=== PATIENT | female | born 1985 | race Caucasian/White ===

== ENCOUNTER 2016-06-27 17:12 | Observation (INO) | payer MEDICAID ==
--- NOTE | 2016-06-27 17:47 | CPEKG ---
Heart Rate: 65 RR Interval: 923 P-R Interval: 128 QRSD Interval: 86 QT Interval: 424 QTC Interval: 441 P [place]: 13 QRS [place]: 62 T Wave [place]: 35 EKG Severity - NORMAL ECG - EKG Impression: SINUS RHYTHM Electronically Signed By: Alexx Mccord 27-Jun-2016 22:35:45
[2016-06-27] MEDS ORDERED: LORazepam 2 MG/ML INJ ONE (18:09)
[2016-06-27] MEDS ORDERED: NS 1,000 ML IV ONE (18:11)
[2016-06-27] MEDS ORDERED: LORazepam 2 MG/ML INJ IVP ONE ×2 (18:17→19:24)
--- NOTE | 2016-06-27 18:17 | EDPHY ---
H & P Stated Complaint: SZ like activity Source: Other (Patient's boyfriend) Exam Limitations: Other - Personal History LMP (Females 10-55): Unknown Current Tetanus/Diphtheria Vaccine: Unsure Current Tetanus Diphtheria and Acellular Pertussis (TDAP): Unsure - Medical/Surgical History Hx Asthma: No Hx Chronic Respiratory Disease: No Hx Diabetes: No Hx Cardiac Disease: No Hx Renal Disease: No Hx Cirrhosis: No Hx Alcoholism: No Hx HIV/AIDS: No Hx Splenectomy or Spleen Trauma: No Other PMH: surgical- appy, back injury, ADD - Family History Significant Family History: No pertinent family hx - Social History Smoking Status: Current some day smoker Alcohol Use: Rarely Drug Use: None Time Seen by Provider: 06/27/16 18:14 HPI/ROS: HPI: 30-year-old female presents to emergency department with chief concern seizure-like activity. Per her boyfriend, she began having tremors on Tuesday after taking a Wellbutrin and Mucinex together at the same time. Over the past 48 hours the tremors have become more severe, she has developed a tick, and her gait has become uncoordinated. They deny recent fevers, chills, myalgias, visual changes, shortness of breath, chest pain, abdominal pain, nausea, vomiting, diarrhea, rash. No recent infections. No trauma. Denies alcohol or illicit drug use. Only took one dose of the Wellbutrin which had been a new prescription for her. Takes Meloxicam for back pain. ROS:10 point review of systems is negative other than as stated in HPI. 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 EENT: PERRLA. EOMI. No papilledema. no conjunctival injection or hemorrhage. TMs intact, translucent. No evidence of bleeding or otorrhea. Nasal septum midline, nasal mucosa pink. no evidence of drainage. Uvula midline, pharynx without redness. Resp: Breathing unlabored. Lungs clear to auscultation bilaterally. CV: HRR. S1S2. No MRG. GI: Abdomen soft, nontender. Bowel sounds normoactive and positive x4 quadrants. Skin: Warm, dry. No rashes noted. Capillary refill less than 2 seconds. Musculoskeletal: Moves all extremities. Neuro: Oriented to person, place, time. At time of exam, tremulous, partial seizure like activity. Strength 5+ in all extremities. Sensation intact all extremities. Extremities: Full range of motion. (Alexandra Baker) Constitutional: Initial Vital Signs Temperature (C) 36.7 C 06/27/16 17:12 Heart Rate 97 06/27/16 17:12 Respiratory Rate 18 06/27/16 17:12 Blood Pressure 130/82 H 06/27/16 17:12 O2 Sat (%) 97 06/27/16 17:12 O2 Delivery Mode Room Air Allergies/Adverse Reactions: No Known Allergies Allergy (Unverified 01/03/14 23:56) Home Medications: Medication Instructions Recorded Baclofen [Baclofen 10 mg (*)] 10 mg PO TID PRN 06/27/16 Meloxicam [Mobic 7.5 mg] 7.5 mg PO DAILY 06/27/16 Medical Decision Making - Diagnostics Imaging: CT Brain (Without Contrast) at 1833 hours History: Altered mental status, seizure. Comparison: None. Technique: Axial computed tomographic images of the brain without contrast. Dose reduction techniques were utilized. Findings: Ventricles, cisterns, and sulci are normal without atrophy, hydrocephalus, midline shift /herniation, or epidural/subdural hematomas. No acute intraparenchymal hemorrhage, definite infarct , or mass effect. Bone windows demonstrate no displaced fractures. Paranasal sinuses and mastoid air cells are clear. Impression: 1. Normal CT brain without contrast. 2. Consider MRI of the brain without and with contrast enhancement, if there is continued clinical concern. Final report concurs with initial preliminary interpretation. Dictated By: James Caballero (Alexandra Baker) ED Course/Re-evaluation: 1829:30-year-old female presents to emergency department with seizure-like activity that onset suddenly today. Developed tremors 2 days ago and symptoms have worsened progressively over the past 48 hours resulting in a tic and severe tremors vs partial seizure. CBC and basic metabolic panel are unremarkable. CT head negative. EKG shows a sinus rhythm, rate 65, normal intervals, no axis deviation, no dysrhythmia.1 mg IV Ativan significantly reduced the seizure-like activity. 1925: Given additional 1 mg IV Ativan for worsening seizure-like activity. Dr. Daniel of Neurology has been consulted. Gabapentin 300 mg TID started. First dose given in ED. Report given to Dr. Sawyer who accepts this patient. 2045: Patient transferred to floor (Alexandra Baker) Differential Diagnosis: Seizure including but not limited to electrolyte abnormality, alcohol withdrawal , pseudoseizure, psych etiology, head injury, serotonin syndrome, fever, [employer] infection, hypoxemia, toxin exposure, dysrhythmia, and breakthrough seizure, tumor (Alexandra Baker) - Data Points Laboratory Results: Laboratory Results 06/27/16 17:35 06/27/16 17:35 Medications Given: Discontinued Medications Gabapentin (Neurontin) 300 mg PO EDNOW ONE Stop: 06/27/16 19:47 Last Admin: 06/27/16 20:27 Dose: 300 mg Gabapentin (Neurontin) 100 mg PO TID RODGER Stop: 12/25/16 08:59 Last Admin: 06/28/16 08:46 Dose: Not Given Sodium Chloride (Ns) 1,000 mls @ 0 mls/hr IV ONCE ONE PRN Reason: Wide Open Stop: 06/27/16 18:12 Last Admin: 06/27/16 18:18 Dose: 1,000 mls Lorazepam (Ativan Injection) 1 mg IVP EDNOW ONE Stop: 06/27/16 18:18 Last Admin: 06/27/16 18:19 Dose: 1 mg Lorazepam (Ativan Injection) 1 mg IVP EDNOW ONE Stop: 06/27/16 19:25 Last Admin: 06/27/16 19:31 Dose: 1 mg Departure - Departure Disposition: [facility] Inpatient Acute Clinical Impression: Seizure-like activity Condition: Good
[2016-06-27 18:21] LABS: % IMMATURE GRANULYOCYTES 0.1 % (0.0-1.1); ABSOLUTE IMMATURE GRANULOCYTES 0.01 10^3/uL (0.00-0.10); ADD DIFF? NO; ADD MORPH? NO; ADD SCAN? NO; ATYPICAL LYMPHOCYTE FLAG 30 (0-99); FRAGMENT RBC FLAG 0 (0-99); HEMATOCRIT 40.8 % (38.0-47.0); LEFT SHIFT FLG 0 (0-99); LIPEMIA HEMOLYSIS FLAG 90 (0-99); MEAN CELL HEMOGLOBIN 31.3 pg (27.9-34.1); MEAN CELL HEMOGLOBIN CONCENTR. 34.3 g/dL (32.4-36.7); MEAN CELL VOLUME 91.1 fL (81.5-99.8); MEAN PLATELET VOLUME 9.6 fL (8.7-11.7); PLATELET CLUMPS FLAG 10 (0-99); PLATELET COUNT 261 10^3/uL (150-400); RED BLOOD CELL COUNT 4.48 10^6/uL (4.18-5.33); RED CELL DISTRIBUTION WIDTH 11.8 % (11.5-15.2)
[2016-06-27 18:38] LABS: ANION GAP 11 mEq/L (8-16); CALCIUM 9.1 mg/dL (8.5-10.4); CARBON DIOXIDE 25 mEq/l (22-31); CHLORIDE 106 mEq/L (97-110); CREATININE 0.8 mg/dL (0.6-1.0); GLOMERULAR FILTRATION RATE > 60; GLUCOSE 91 mg/dL (70-100); POTASSIUM 4.2 mEq/L (3.5-5.2); SODIUM 142 mEq/L (134-144)
--- NOTE | 2016-06-27 19:00 | CT ---
CT Brain (Without Contrast) at 1833 hours History: Altered mental status, seizure. Comparison: None. Technique: Axial computed tomographic images of the brain without contrast. Dose reduction technique s were utilized. Findings: Ventricles, cisterns, and sulci are normal without atrophy, hydrocephalus, midline shift/h erniation, or epidural/subdural hematomas. No acute intraparenchymal hemorrhage, definite infarct, or mass effect. Bone windows demonstrate no displaced fractures. Paranasal sinuses and mastoid air cell s are clear. Impression: 1. Normal CT brain without contrast. 2. Consider MRI of the brain without and with contrast enhancement, if there is continued clinical co ncern. Findings and recommendations discussed with Emergency Department physician, OSMAN Corral at 1858 hour, today. Final report concurs with initial preliminary interpretation.
[2016-06-27] MEDS ORDERED: GABAPENTIN 300 MG CAP PO ONE (19:46)
[2016-06-27 19:50] LABS: COLOR COLORLESS; LEUKOCYTE ESTERASE,URINE NEGATIVE (NEGATIVE); NITRITE,URINE NEGATIVE (NEGATIVE)
[2016-06-27] MEDS ORDERED: ACETAMINOPHEN 325 MG TAB PO PRN (21:20)
[2016-06-27] MEDS ORDERED: TEMAZEPAM 15 MG CAP PO PRN (21:20)
[2016-06-27] MEDS ORDERED: ONDANSETRON DISINTEGRATING 4 MG TAB PO PRN (21:20)
[2016-06-27] MEDS ORDERED: ONDANSETRON 4 MG/2 ML VIAL IVP PRN (21:20)
[2016-06-27] MEDS ORDERED: NS 1,000 ML IV SCH (21:30)
--- NOTE | 2016-06-27 21:44 | GHP ---
[f rep st] HISTORY AND PHYSICAL DATE OF ADMISSION: 06/27/2016 CHIEF COMPLAINT: Seizure-like activity. HISTORY OF PRESENT ILLNESS: This is a 30-year-old female with a history of ADD. She was started on Wellbutrin 2 nights ago, which appeared to be sustained release. She immediately did not feel well w ith heart palpitations and anxiety. She also took it with a dose of Mucinex. The next day, she had tremor-like activity and a tic for facial. Her head was moving in a tremor-like away. She also had some uncoordinated gait. She was not having any focal weakness. She has not had a seizure before. She states that she is feeling a lot better now after several milligrams of Ativan, although she is s till having a little bit of right-sided hand motion. She never lost consciousness. REVIEW OF SYSTEMS: A 10-point review of systems was obtained and other than stated was negative. PAST MEDICAL HISTORY: 1. ADD. 2. Back pain, for which she takes meloxicam. PAST SURGICAL HISTORY: Appendectomy. FAMILY HISTORY: No history of seizures. SOCIAL HISTORY: Does smoke a little bit. No alcohol. Currently is a massage therapist. PHYSICAL EXAMINATION: VITAL SIGNS: Afebrile. Blood pressure is 111/85, heart rate 75, and oxygen s aturation 96% on room air. GENERAL: The patient is well developed and in no apparent distress. JESSICA NT: Nonicteric sclerae. Extraocular movements intact. Moist mucous membranes. NECK: Supple. No thyromegaly. LUNGS: Good effort. Clear to auscultation bilaterally. CARDIAC: Regular rate and rh ythm. No murmurs, rubs, or gallops. ABDOMEN: Positive bowel sounds. Soft, nontender, nondistended . No hepatosplenomegaly. EXTREMITIES: No clubbing, cyanosis, or edema. SKIN: Without rash. Warm , dry, and intact. NEUROLOGIC: Alert and oriented x3. A little bit sedated due to her medications. Cranial nerves 2-12 were intact. She has 5/5 strength in all 4 extremities. She has a little bit of a right-sided intention-like tremor versus pseudoseizure-like activity. DIAGNOSTIC DATA: CT scan of the head is negative. ASSESSMENT: This is a 30-year-old female presenting with a medication reaction to Wellbutrin. PLAN: Medication reaction. This is probably less likely to be true partial seizures and more due to the possible anxiety-producing effects of Wellbutrin versus pseudoseizure. Regardless, I do think t his is related to her medication. Neurology was consulted by phone apparently and recommended that s he should just be discharged, but the family is comfortable with that plan. We will watch her overni ght and would have Neurology see her in the morning. They recommended gabapentin at 300 mg t.i.d., a lthough on talking with the patient, she appears to be quite sensitive to medications, and we will de crease that dose to 100 mg t.i.d. /[id number]/MODL
[2016-06-27] MEDS ORDERED: BENZONATATE 100 MG CAP PO PRN (23:25)
[2016-06-28 07:33] VITALS: BP 97/54; PULSE 54; RESP 14; TEMP 97.9; O2SAT 93
--- NOTE | 2016-06-28 08:10 | HOSPPROG ---
Hospitalist Progress Note Assessment/Plan: Patient is a 30-year-old female with a history of ADD. She was recently started on Wellbutrin. She had a tremor-like activity. She was admitted for further care. #. questionable seizure versus side effect of Wellbutrin versus pseudo-seizure * Dr Shipley evaluated/ not likely a true seizure * dc Wellbutrin #. Plan: dc home Subjective: Sneha has no complaints/ ready to be dc home Objective: Vital Signs Temp Pulse Resp BP Pulse Ox 36.6 C 54 L 14 97/54 L 93 06/28/16 07:33 06/28/16 07:33 06/28/16 07:33 06/28/16 07:33 06/28/16 07:33 06/27/16 06/28/16 06/29/16 05:59 05:59 05:59 Intake Total 1300 Balance 1300 - Physical Exam Constitutional: no apparent distress, appears nourished, not in pain Eyes: PERRL Ears, Nose, Mouth, Throat: hearing normal Respiratory: no respiratory distress Gastrointestinal: normoactive bowel sounds Skin: warm, normal color Musculoskeletal: full muscle strength Neurologic: AAOx3 Psychiatric: interacting appropriately ICD10 Worksheet Patient Problems: Problems Problem Status Diagnosed Seizure-like activity Acute
[2016-06-28] MEDS ORDERED: GABAPENTIN 100 MG CAP PO SCH (09:00)
--- NOTE | 2016-06-28 10:21 | GCON ---
[f rep st] CONSULTATION NEUROLOGIC CONSULTATION REFERRING PHYSICIAN: Facundo Sawyer MD HISTORY: The patient is a 30-year-old woman whom I am asked to see in neurologic consultation regard ing abnormal movements and behavior. She says that she has a history of anxiety, attention deficit d isorder and depression. She has been treated in the past with stimulant medications with no success in controlling ADD. She has never been hospitalized for psychiatric illness and has no suicide attem pts. She says that she went to her primary care office 3 days ago and was complaining about depressi on and the attention deficit, and also saw her psychiatrist, and it was decided to put her on Wellbut rin with the idea that might help ADD a bit as well as some of the feelings of depression and anxiety . She took the medication at night and said she felt abnormal. She felt a little bit shaky and a bi t dissociated. She had also been dealing with 1 week of an upper respiratory infection and had taken Mucinex around the same time. She slept and felt a little better in the morning. The next day, she started out doing well and then started having some more symptoms and eventually participated in act ivities with her boyfriend, but then went to bed and became tremulous when she was lying in bed, with out any altered consciousness. She decided to get up and read on the couch. She had slept and felt a little bit better, but again started having symptoms in the afternoon yesterday around 2 or 3 p.m. when she was again a bit tremulous and stuttering her words, and slower to interact. She came to the emergency room and was given lorazepam. There were times when she had some opisthotonus, tremulousn ess and facial twitches. This led to evaluation with basic labs that were unremarkable and she had i maging of the brain with a head CT that was normal. She was subsequently admitted. Apparently, the emergency room and had a conversation with Dr. Daniel regarding her case and 300 mg of gabapentin 3 jack es a day was recommended and discharged home, but the report states that family was uncomfortable wit h that and wanted her admitted to the hospital, so she was admitted. Then Dr. Sawyer saw her and lowe red the dose of gabapentin to 100 mg 3 times per day. She has never been on this medication before. This morning, she says she was feeling a little tired but overall doing fairly well. She reports to me that she has had 1 panic attack in her life. She felt a little anxious during the episodes she wa s experiencing intermittently over the last 24-48 hours. About a year ago, she had evaluation for so me palpitations and was found to have some PVCs but nothing else more specific. She denies focal num bness or weakness. REVIEW OF SYSTEMS: A 10-point review of systems was completed and unremarkable except for that noted above. She has not found any obvious triggering or alleviating factors for these symptoms which are now fairly mild. FAMILY HISTORY: Notable for dementia and stroke. SOCIAL HISTORY: She has a significant other. She does not smoke. She does not drink alcohol except exceptionally rare occasions. No drug use. She is normally fairly active. MEDICATIONS: She has just received a dose of Wellbutrin 3 nights ago, but not normally on that regul alec. She does take meloxicam regularly. She has had baclofen in the past and took a single dose a week ago to try to help relieve back spasms. Apparently a year ago she had some lumbar disc disease noted and that is when she had received baclofen for the 1st time, but does not take that regularly. ALLERGIES: None, but she should be listed to have a sensitivity to Wellbutrin. PHYSICAL EXAMINATION: VITAL SIGNS: Blood pressure is 97/54, pulse of 54, respirations 14, temperatu re 36.6. GENERAL: She is a well-developed young woman in no acute distress. Eyes are clear. NECK: Supple with no bruits or masses. CARDIAC: Regular rate and rhythm. No murmur. EXTREMITIES: No cyanosis or edema. Pulses are 2+. NEUROLOGIC: She is alert and attentive with clear and fluent spe ech. Pupils are 3 mm and reactive. Extraocular movements are intact. Normal funduscopic exam. No visual field loss. Normal facial sensation and strength. Palate elevates symmetrically and tongue p rotrudes midline. Hearing is preserved. No weakness of head turning or shoulder shrug. Motor exami [facility] reveals normal muscle bulk and tone with 5/5 strength. Initially she had no abnormal movement s and a normal voice and normal communications skills. She was oriented to person, place, time, and general situation. She knows her location. She has a good remote memory. She has good recent memor y as well. Concentration and attention are preserved, although she started to get distracted a littl e bit during the evaluation. Her general fund of knowledge is normal. As we spoke, after about 20 minutes she was starting to have a little bit of tremulousness to her hea d and voice and some mild facial twitches. She had no altered consciousness at any point. She was a hernández of these phenomena and we talked a little bit about it. She said she was not feeling particular ly anxious. The movements were characterized mainly by pulling of the mouth to 1 side really briefly and the slight tremulousness to the jaw, voice and head, and a little bit in the upper extremities. This then stopped again. Sensation is preserved for temperature and light touch. No ataxia on fing er-to-nose. Reflexes are 1+ and symmetric. LABORATORY STUDIES: Normal CBC, electrolytes and urinalysis. Negative tox screen. Head CT was normal, I reviewed that directly. EKG sinus rhythm. IMPRESSION: The patient has experienced a phenomenon of tremulousness with some trouble staying full y focused during some of the events but no loss of consciousness. This all gloria after a week of deal ing with an upper respiratory infection and getting started on a new medication, Wellbutrin, in an at tempt to try and treat depression, anxiety and attention deficit, according to the patient. Symptoms arose after starting this medication. Given the temporal relationship, I think she was probably hav ing side effects from the Wellbutrin and perhaps some additional anxiety or near panic attack type sy mptoms, although that is fairly mild at this point. I did see some of the tremulousness. It is veda rly nonepileptic in origin by the clinical features. I do not think she has a seizure disorder nor d o I think she needs more workup for that. I do not recommend EEG or brain MRI. She has a normal joyce rologic exam except for the tremulousness I documented above. Her labs look good. I do not believe she needs to be on gabapentin and we will discontinue that. She should have follow up with her prima ry care and psychiatrists to review what has happened, and they can make considerations as to whether more needs to be done. But from a neurologic standpoint, she does not need any additional followup unless further questions arise. I answered their questions and explained things to her boyfriend, luiza d they are comfortable with this approach. I have also spoken to Deidra Vargas, who will be discha rging the patient today. Copy requested to: Patient's Psychiatrist /[id number]/MODL
--- NOTE | 2016-06-28 10:41 | GDS ---
[f rep st] DISCHARGE SUMMARY DISCHARGE DIAGNOSIS: Medication reaction. CONSULTATIONS: During her stay: Dr. Alberto Shipley. HOSPITAL COURSE: Briefly, the patient is a 30-year-old female with a history of ADD. She was starte d on Wellbutrin approximately 2 days ago. She had a tremor-like activity and tic type movement to he r facial area. She was admitted and monitored over night. She was seen and evaluated by Dr. Alberto sosa today. It was most likely secondary to medication. Recommended that she stop her Wellbutrin and further follow up with her primary care provider. CONDITION AT DISCHARGE: Stable. Blood pressure 97/54, heart rate 54, respiratory rate is 14, O2 sat uration on room air 92%, temperature 36.6 Celsius. DISCHARGE MEDICATIONS: Please see the EMR. DISCHARGE INSTRUCTIONS: 1. Stop Wellbutrin. 2. If she has any further seizures, return to the emergency room. /[id number]/MODL
== END 2016-06-28 09:00 | disposition home or self-care (01) ==
LOC: F3N 21:11
PROVIDERS: ADMIT Internal Medicine; ATTEND Internal Medicine
DX: R56.9 Unspecified convulsions (principal); G25.69 Other tics of organic origin; T43.295A Adverse effect of other antidepressants, initial encounter; F98.8 Other specified behavioral and emotional disorders with onset usually occurring in childhood and adolescence
CPT/HCPCS: 70450; 93005; G0378; 80305; 96374

== ENCOUNTER 2017-11-29 21:55 | Emergency (ER) | payer MEDICAID ==
--- NOTE | 2017-11-29 22:03 | EDPHY ---
H & P Stated Complaint: SI PAIN/LOW BACK PAIN, SEVERE, UNABLE TO WALK OR SIT. Time Seen by Provider: 11/29/17 22:03 HPI/ROS: HPI CHIEF COMPLAINT: Back pain. HISTORY OF PRESENT ILLNESS: 32-year-old female, otherwise healthy however she suffers from chronic back pain. She states for the past 6 years she has had ongoing going back pain. However she states over the past week and her back pain has gotten worse. She states she went and had a deep tissue massage which made it worse and additionally had chiropractic back manipulation which made it worse. She denies any fever, denies saddle anesthesia, denies leg weakness. She reports to me she has had multiple MRIs with no conclusion of what causes her back pain. She describes pain as rather severe sharp stabbing 10/10 located over her right posterior SI joint. It does not go down her leg. Does not go down her gluteus. Past Medical History: Chronic back pain. Past Surgical History: No recent surgery Social History: Denies daily use drugs alcohol tobacco. Family History: Noncontributory ROS REVIEW OF SYSTEMS: A comprehensive 10 point review of systems is otherwise negative aside from elements mentioned in the history of present illness. Exam Constitutional triage nursing summary reviewed, vital signs reviewed, awake/ alert. Eyes normal conjunctivae and sclera, EOMI, PERRLA. HENT normal inspection, atraumatic, moist mucus membranes, no epistaxis, neck supple/ no meningismus, no raccoon eyes. Respiratory clear to auscultation bilaterally, normal breath sounds, no respiratory distress, no wheezing. Cardiovascular rate normal, regular rhythm, no murmur, no edema, distal pulses normal. Gastrointestinal soft, non-tender, no rebound, no guarding, normal bowel sounds, no distension, no pulsatile mass. Genitourinary no CVA tenderness. Musculoskeletal back exam: I do not appreciate any significant midline lumbar spine tenderness, no step-offs, no crepitus, mild tender palpation over the right SI joint. Legs no weakness. Distally neurovascular intact. full range of motion, no calf swelling, no tenderness of extremities, no meningismus, good pulses, neurovascularly intact. Skin pink, warm, & dry, no rash, skin atraumatic. Neurologic awake, alert and oriented x 3, AAOx3, moves all 4 extremities equally, motor intact, sensory intact, CN II-XII intact, normal cerebellar, normal vision, normal speech. Psychiatric normal mood/affect. Heme/Lymph/Immune no lymphadenopathy. Differential Diagnosis: Includes but is not limited to in a particular order back strain, back contusion, SI joint inflammation, compression fracture, annular tear, nerve root compression, no signs of acute cauda equina on exam. Medical Decision Making: Plan for this patient x-ray lumbar spine, x-ray of the pelvis, IV establishment IV fluid bolus, IV Decadron, IV Toradol, IV Valium and re-evaluate. Re-evaluation: 2258: X-ray of the pelvis and lumbar spine, and x-ray of the pelvis unremarkable for acute traumatic injury. 1200AM: Patient re-evaluated feeling much better. Blood work, urinalysis, x- rays reviewed. X-ray showed no evidence of acute abnormality. Patient had focal pain over the right posterior SI joint. Mildly tender on exam. No focal leg weakness. No saddle anesthesia. Feels better after IV meds. Will provide prescriptions for anti-inflammatories, steroids. Do recommend she follows up with her primary care doctor. Return precautions discussed with her understands return emergency room if she has worsening back pain, fever, vomiting questions or concerns. Source: Patient - Personal History LMP (Females 10-55): 1-7 Days Ago Current Tetanus/Diphtheria Vaccine: Unsure - Medical/Surgical History Hx Asthma: No Hx Chronic Respiratory Disease: No Hx Diabetes: No Hx Cardiac Disease: No Hx Renal Disease: No Hx Cirrhosis: No Hx Alcoholism: No Hx HIV/AIDS: No Hx Splenectomy or Spleen Trauma: No Other PMH: surgical- appy, back injury, ADD - Social History Smoking Status: Former smoker Constitutional: Initial Vital Signs Temperature (C) 36.6 C 11/29/17 22:00 Heart Rate 85 11/29/17 22:00 Respiratory Rate 22 H 11/29/17 22:00 Blood Pressure 144/95 H 11/29/17 22:00 O2 Sat (%) 95 11/29/17 22:00 O2 Delivery Mode Room Air Allergies/Adverse Reactions: No Known Allergies Allergy (Unverified 11/29/17 21:59) Home Medications: Medication Instructions Recorded Ibuprofen 11/29/17 Ibuprofen [Motrin (*)] 800 mg PO Q6-8PRN #10 tab 11/29/17 Sertraline HCl 11/29/17 Tizanidine HCl 11/29/17 predniSONE 60 mg PO DAILY #15 tab 11/29/17 Medical Decision Making - Diagnostics Imaging Results: Imaging Impressions Lumbar Spine X-Ray 11/29/17 22:10 Impression: Normal. 2. AP Pelvis History: Pain, "unstable pelvis" Findings: Mineralization is normal. The pubic symphysis, hip joints and SI joints look normal. Pelvic soft tissue planes appear normal. Impression: Normal. Pelvis X-Ray 11/29/17 22:10 Impression: Normal. 2. AP Pelvis History: Pain, "unstable pelvis" Findings: Mineralization is normal. The pubic symphysis, hip joints and SI joints look normal. Pelvic soft tissue planes appear normal. Impression: Normal. - Data Points Laboratory Results: Laboratory Results 11/29/17 22:20 11/29/17 22:20 11/29/17 11/29/17 11/29/17 22:20 22:20 22:20 WBC 8.95 10^3/uL 10^3/uL (3.80-9.50) RBC 4.30 10^6/uL 10^6/uL (4.18-5.33) Hgb 13.4 g/dL g/dL (12.6-16.3) Hct 39.8 % % (38.0-47.0) MCV 92.6 fL fL (81.5-99.8) MCH 31.2 pg pg (27.9-34.1) MCHC 33.7 g/dL g/dL (32.4-36.7) RDW 12.3 % % (11.5-15.2) Plt Count 303 10^3/uL 10^3/uL (150-400) MPV 9.4 fL fL (8.7-11.7) Neut % (Auto) 56.5 % % (39.3-74.2) Lymph % (Auto) 34.2 % % (15.0-45.0) [place] % (Auto) 7.7 % % (4.5-13.0) Eos % (Auto) 1.1 % % (0.6-7.6) Baso % (Auto) 0.2 % L % (0.3-1.7) Nucleat RBC Rel Count 0.0 % % (0.0-0.2) Absolute Neuts (auto) 5.05 10^3/uL 10^3/uL (1.70-6.50) Absolute Lymphs (auto) 3.06 10^3/uL H 10^3/uL (1.00-3.00) Absolute Monos (auto) 0.69 10^3/uL 10^3/uL (0.30-0.80) Absolute Eos (auto) 0.10 10^3/uL 10^3/uL (0.03-0.40) Absolute Basos (auto) 0.02 10^3/uL 10^3/uL (0.02-0.10) Absolute Nucleated RBC 0.00 10^3/uL 10^3/uL (0-0.01) Immature Gran % 0.3 % % (0.0-1.1) Immature Gran # 0.03 10^3/uL 10^3/uL (0.00-0.10) Sodium 138 mEq/L mEq/L (135-145) Potassium 3.7 mEq/L mEq/L (3.3-5.0) Chloride 105 mEq/L mEq/L (97-110) Carbon Dioxide 24 mEq/l mEq/l (22-31) Anion Gap 9 mEq/L mEq/L (8-16) BUN 16 mg/dL mg/dL (7-23) Creatinine 0.7 mg/dL mg/dL (0.6-1.0) Estimated GFR > 60 Glucose 71 mg/dL mg/dL (70-100) Calcium 9.6 mg/dL mg/dL (8.5-10.4) Beta HCG, Qual NEGATIVE Medications Given: Discontinued Medications Dexamethasone (Decadron Injection) 10 mg IVP EDNOW ONE Stop: 11/29/17 22:11 Last Admin: 11/29/17 22:20 Dose: 10 mg Diazepam (Valium) 2.5 mg IVP EDNOW ONE Stop: 11/29/17 22:10 Last Admin: 11/29/17 22:17 Dose: 2.5 mg Sodium Chloride (Ns) 1,000 mls @ 0 mls/hr IV EDNOW ONE; Wide Open PRN Reason: Protocol Stop: 11/29/17 22:09 Last Admin: 11/29/17 22:17 Dose: 1,000 mls Ketorolac Tromethamine (Toradol) 15 mg IVP EDNOW ONE Stop: 11/29/17 22:10 Last Admin: 11/29/17 22:18 Dose: 15 mg Departure - Departure Disposition: Home, Routine, Self-Care Clinical Impression: Back pain Qualifiers: Back pain location: low back pain Chronicity: acute Back pain laterality: right Sciatica presence: without sciatica Qualified Code(s): M54.5 - Low back pain Condition: Good Instructions: Low Back Strain (ED), Acute Low Back Pain (ED), Arthralgia (ED), Back Pain (ED) Additional Instructions: 1. Follow up with your primary care doctor. 2. Return emergency room if you have worsening pain questions or concerns. 3. Recommend anti-inflammatory pain medicine and steroids. Referrals: NONE *PRIMARY CARE P,. [Primary Care Provider] - As per Instructions [facility],. [Clinic] - As per Instructions Prescriptions: Ibuprofen [Motrin (*)] 800 mg PO Q6-8PRN #10 tab predniSONE 60 mg PO DAILY #15 tab
[2017-11-29] MEDS ORDERED: NS 1,000 ML IV ONE (22:08)
[2017-11-29] MEDS ORDERED: DIAZEPAM 5 MG/ML 1 ML SYR IVP ONE (22:09)
[2017-11-29] MEDS ORDERED: KETOROLAC 15 MG/1 ML SDV IVP ONE (22:09)
[2017-11-29] MEDS ORDERED: DEXAMETHASONE 10 MG/ML VIAL IVP ONE (22:10)
[2017-11-29 22:26] LABS: PLATELET COUNT 303 10^3/uL (150-400)
[2017-11-29 23:10] VITALS: BP 99/63
== END 2017-11-30 00:28 | disposition home or self-care (01) ==
DX: M54.5 Low back pain (principal); E86.9 Volume depletion, unspecified; Z87.891 Personal history of nicotine dependence
CPT/HCPCS: 96374; J1100; J1885; J3360

== ENCOUNTER 2018-09-07 20:54 | Emergency (ER) | payer MEDICAID, OTHER ==
[2018-09-07 21:15] LABS: PLATELET COUNT 306 10^3/uL (150-400)
[2018-09-07] MEDS ORDERED: FAMOTIDINE 20 MG/NACL 50 ML IV ONE (21:38)
[2018-09-07] MEDS ORDERED: FAMOTIDINE 20 MG TAB PO ONE (21:38)
[2018-09-07] MEDS ORDERED: MAG HYDROX/AL HYDROX/SIMETH 30 ML UDCUP PO ONE (21:39)
[2018-09-07] MEDS ORDERED: HYOSCYAMINE SULFATE 0.125 MG TAB PO ONE (21:39)
[2018-09-07] MEDS ORDERED: LIDOCAINE 2% VISCOUS 15 ML UDCUP PO ONE (21:39)
--- NOTE | 2018-09-07 21:47 | EDPHY ---
H & P Stated Complaint: periumbilical pain x 36 hours, bloated, belching, N/D/C Source: Patient Exam Limitations: No limitations - Personal History LMP (Females 10-55): 8-14 Days Ago Current Tetanus/Diphtheria Vaccine: No Current Tetanus Diphtheria and Acellular Pertussis (TDAP): No - Medical/Surgical History Hx Asthma: No Hx Chronic Respiratory Disease: No Hx Diabetes: No Hx Cardiac Disease: No Hx Renal Disease: No Hx Cirrhosis: No Hx Alcoholism: No Hx HIV/AIDS: No Hx Splenectomy or Spleen Trauma: No Other PMH: surgical- appy, back injury, ADD - Social History Smoking Status: Former smoker Time Seen by Provider: 09/07/18 21:06 HPI/ROS: CHIEF COMPLAINT: Periumbilical pain, nausea, bloating HISTORY OF PRESENT ILLNESS: The patient presents the ED with a 2 day history of periumbilical pain, nausea and bloating. She reports normal bowel movements. She denies any hematemesis or hematochezia. The patient does have a remote history of appendectomy. She denies significant past medical history. The patient denies any fever, cough or congestion. The patient denies additional acute complaints. REVIEW OF SYSTEMS: A comprehensive 10 point review of systems is otherwise negative aside from elements mentioned in the history of present illness. (Jensen Alvarez) - Physical Exam Exam: General Appearance: Alert, no distress Eyes: Pupils equal and round no pallor or injection ENT, Mouth: Mucous membranes moist Respiratory: There are no retractions, lungs are clear to auscultation Cardiovascular: Regular rate and rhythm Gastrointestinal: Marked tenderness to palpation over the superior umbilicus without evidence of an obvious umbilical hernia, normal bowel sounds, no right lower quadrant, epigastric or right lower quadrant tenderness appreciated Neurological: 5/5 strength noted all 4 extremities Skin: Warm and dry, no rashes Musculoskeletal: Neck is supple nontender Extremities: symmetrical, full range of motion Psychiatric: Patient is oriented X 3, there is no agitation (Jensen Alvarez) Constitutional: Initial Vital Signs Temperature (C) 37.1 C 09/07/18 21:01 Heart Rate 87 09/07/18 21:01 Respiratory Rate 18 09/07/18 21:01 Blood Pressure 131/74 H 09/07/18 21:01 O2 Sat (%) 99 09/07/18 21:01 O2 Delivery Mode Room Air Allergies/Adverse Reactions: bupropion [From Wellbutrin] Allergy (Verified 09/07/18 21:00) Home Medications: Medication Instructions Recorded Adderall 10 mg Tablet 09/07/18 Lexapro 10 MG 09/07/18 Medical Decision Making - Diagnostics Imaging Results: Imaging Impressions Abdomen CT 09/07/18 21:46 Impression: 1. Possible terminal ileitis/mesenteric adenitis. 2. Nonvisualized appendix without secondary evidence for appendicitis. 3. Contracted gallbladder. 4. 2.2 cm right adnexal cyst. Results discussed with Dr. Owens at 10:15 PM. General information for patients regarding this examination can be found at [email or web address]. If you have questions or comments about this report, please contact me at (hospital) or [phone] (cell). ED Course/Re-evaluation: Patient presents to the ED with a day and half of periumbilical pain, nausea and bloating. She has had no symptoms of vomiting or diarrhea. She has had normal bowel movements. The patient's abdominal examination demonstrates only point tenderness in the area the superior umbilicus. The patient was given a GI cocktail in the emergency department. Laboratory studies are unrevealing. The patient had serial examinations in the ED continues to have ongoing tenderness without evidence of an obvious umbilical hernia. Given the persistence of her symptoms a CT scan of the abdomen pelvis was ordered for further characterization of her pain and tenderness. The patient will be turned over to Dr. Solano at shift change pending the results of her CT scan. The CT scan is normal I do feel the patient be discharged home and take anti-inflammatories. (Jensen Alvarez) CT scan abdomen pelvis with IV contrast this was called to me by Dr. Denson at 10:15 p.m. This shows some mild terminal ileal inflammation consistent with that terminal ileitis, mesenteric adenitis. There is no umbilical hernia on exam. Re-examination at this time 11:51 p.m. Resting comfortably denies any abdominal pain this time I did reexamine her abdomen is soft nontender. She has had an appendectomy. We discussed her CT results. I do recommend rest, stay well-hydrated, bland diet, return to the emergency room if worsening abdominal pain, fever, vomiting she is comfortable this plan. (oRosevelt Solano) Differential Diagnosis: Differential diagnosis considered includes perforation, obstruction, umbilical hernia, gastroenteritis, pancreatitis (Jensen Alvarez) - Data Points Laboratory Results: Laboratory Results 09/07/18 21:05 09/07/18 21:05 09/07/18 09/07/18 09/07/18 23:10 21:05 21:05 WBC RBC Hgb Hct MCV MCH MCHC RDW Plt Count MPV Neut % (Auto) Lymph % (Auto) [place] % (Auto) Eos % (Auto) Baso % (Auto) Nucleat RBC Rel Count Absolute Neuts (auto) Absolute Lymphs (auto) Absolute Monos (auto) Absolute Eos (auto) Absolute Basos (auto) Absolute Nucleated RBC Immature Gran % Immature Gran # Sodium 137 mEq/L mEq/L (135-145) Potassium 3.6 mEq/L mEq/L (3.5-5.2) Chloride 101 mEq/L mEq/L (97-110) Carbon Dioxide 26 mEq/l mEq/l (22-31) Anion Gap 10 mEq/L mEq/L (6-14) BUN 10 mg/dL mg/dL (7-23) Creatinine 0.8 mg/dL mg/dL (0.6-1.0) Estimated GFR > 60 Glucose 132 mg/dL H mg/dL (70-100) Calcium 9.3 mg/dL mg/dL (8.5-10.4) Total Bilirubin 0.3 mg/dL mg/dL (0.1-1.4) Conjugated Bilirubin 0.2 mg/dL mg/dL (0.0-0.5) Unconjugated Bilirubin 0.1 mg/dL mg/dL (0.0-1.1) AST 24 IU/L IU/L (14-46) ALT 27 IU/L IU/L (9-52) Alkaline Phosphatase 49 IU/L IU/L (38-126) Total Protein 6.8 g/dL g/dL (6.3-8.2) Albumin 4.3 g/dL g/dL (3.5-5.0) Lipase 106 IU/L IU/L (23-300) Beta HCG, Qual NEGATIVE Urine Color PALE YELLOW Urine Appearance CLEAR Urine pH 8.0 H (5.0-7.5) Ur Specific [place] 1.032 H (1.002-1.030) Urine Protein NEGATIVE (NEGATIVE) Urine Ketones NEGATIVE (NEGATIVE) Urine Blood NEGATIVE (NEGATIVE) Urine Nitrate NEGATIVE (NEGATIVE) Urine Bilirubin NEGATIVE (NEGATIVE) Urine Urobilinogen NEGATIVE EU EU (0.2-1.0) Ur Leukocyte Esterase NEGATIVE (NEGATIVE) Urine Glucose NEGATIVE (NEGATIVE) 09/07/18 21:05 WBC 11.01 10^3/uL H 10^3/uL (3.80-9.50) RBC 4.28 10^6/uL 10^6/uL (4.18-5.33) Hgb 13.7 g/dL g/dL (12.6-16.3) Hct 39.8 % % (38.0-47.0) MCV 93.0 fL fL (81.5-99.8) MCH 32.0 pg pg (27.9-34.1) MCHC 34.4 g/dL g/dL (32.4-36.7) RDW 12.2 % % (11.5-15.2) Plt Count 306 10^3/uL 10^3/uL (150-400) MPV 9.2 fL fL (8.7-11.7) Neut % (Auto) 74.2 % % (39.3-74.2) Lymph % (Auto) 19.2 % % (15.0-45.0) [place] % (Auto) 5.9 % % (4.5-13.0) Eos % (Auto) 0.3 % L % (0.6-7.6) Baso % (Auto) 0.2 % L % (0.3-1.7) Nucleat RBC Rel Count 0.0 % % (0.0-0.2) Absolute Neuts (auto) 8.18 10^3/uL H 10^3/uL (1.70-6.50) Absolute Lymphs (auto) 2.11 10^3/uL 10^3/uL (1.00-3.00) Absolute Monos (auto) 0.65 10^3/uL 10^3/uL (0.30-0.80) Absolute Eos (auto) 0.03 10^3/uL 10^3/uL (0.03-0.40) Absolute Basos (auto) 0.02 10^3/uL 10^3/uL (0.02-0.10) Absolute Nucleated RBC 0.00 10^3/uL 10^3/uL (0-0.01) Immature Gran % 0.2 % % (0.0-1.1) Immature Gran # 0.02 10^3/uL 10^3/uL (0.00-0.10) Sodium Potassium Chloride Carbon Dioxide Anion Gap BUN Creatinine Estimated GFR Glucose Calcium Total Bilirubin Conjugated Bilirubin Unconjugated Bilirubin AST ALT Alkaline Phosphatase Total Protein Albumin Lipase Beta HCG, Qual Urine Color Urine Appearance Urine pH Ur Specific [place] Urine Protein Urine Ketones Urine Blood Urine Nitrate Urine Bilirubin Urine Urobilinogen Ur Leukocyte Esterase Urine Glucose Medications Given: Discontinued Medications Al Hydroxide/Mg Hydroxide (Maalox Susp) 30 ml PO ONCE ONE Stop: 09/07/18 21:40 Last Admin: 09/07/18 21:45 Dose: 30 ml Famotidine (Pepcid) 20 mg PO EDNOW ONE Stop: 09/07/18 21:39 Last Admin: 09/07/18 21:45 Dose: 20 mg Hyoscyamine Sulfate (Levsin, Hyomax-Sl) 0.25 mg PO ONCE ONE Stop: 09/07/18 21:40 Last Admin: 09/07/18 21:45 Dose: 0.25 mg Famotidine/Sodium Chloride (Pepcid 20 Mg (Premix)) 50 mls @ 200 mls/hr IV EDNOW ONE Stop: 09/07/18 21:52 Last Admin: 09/07/18 22:58 Dose: Not Given Lidocaine (Lidocaine 2% Viscous) 15 ml PO ONCE ONE Stop: 09/07/18 21:40 Last Admin: 09/07/18 21:45 Dose: 15 ml Departure - Departure Disposition: Home, Routine, Self-Care Clinical Impression: Abdominal pain Qualifiers: Abdominal location: periumbilical Qualified Code(s): R10.33 - Periumbilical pain Condition: Good Instructions: Acute Abdominal Pain (ED) Additional Instructions: 1. [place] diet over the next 24-48 hours no spicy fatty greasy foods. 2. Please return to the emergency room if worsening abdominal pain fever, vomiting 3. We were unable to visualize her appendix on her CT scan tonight. If you have worsening abdominal pain please return to the emergency room. Referrals: Roxane Calderón, PAC [Primary Care Provider] - As per Instructions
[2018-09-07] MEDS ORDERED: IOPAMIDOL (ISOVUE-300) 100 ML BTL ONE (21:50)
[2018-09-08 00:12] VITALS: BP 100/63
== END 2018-09-08 00:12 | disposition home or self-care (01) ==
DX: R10.33 Periumbilical pain (principal); R11.0 Nausea; R14.0 Abdominal distension (gaseous)
CPT/HCPCS: Q9967